=== PATIENT | female | born 1945 | race Caucasian/White ===

== ENCOUNTER → 2019-04-24 | Outpatient (CLI) | payer MEDICARE ==
[~2019-04-24] MED LIST: AMLO5 PO; ANAS1 PO; ASPI325 PO; CITA20 PO; CLON.5 PO; FISH1000 PO; HYDACE7.5 PO; HYDCHL12.5 PO; LEVSOD50 PO; MECL25 PO; METO25ER PO; PRAV20 PO
== END | disposition home or self-care (01) ==
LOC: LAB SHORT 14:30 → LAB EV 14:30
DX: L30.9 Dermatitis, unspecified (principal)
CPT/HCPCS: 87070; 87205

== ENCOUNTER → 2020-03-19 | Outpatient (CLI) | payer MEDICARE | END | disposition home or self-care (01) | LOC: LAB EV 14:58 → LAB SHORT 14:58 | DX: R35.0 Frequency of micturition (principal) | CPT/HCPCS: 87077; 87086; 87186 ==

== ENCOUNTER 2022-10-18 09:01 | Inpatient (IN) | payer MEDICARE ==
[~2022-10-18] VITALS: Ht 160 cm; Wt 45.4 kg
[~2022-10-18 09:01] MED LIST changes: +CELEXA40 M1 PO; -CITA20 PO; -HYDACE7.5 PO; +Hydrocodone-Ap1 EA26 PO; +Pravastatin Sod80 MG PO
[2022-10-18 09:55] LABS: Albumin, Blood 3.3 g/dL (3.4-5.0); Albumin/Globulin Ratio 0.9 (0.8-1.8); Bilirubin, Total 0.6 mg/dL (0.1-1.0); Bun/Creatinine Ratio 16.4 (12.0-20.0); Calcium, Blood 8.5 mg/dL (8.5-10.1); Creatinine, Blood 1.16 mg/dL (0.40-1.00); Globulin, Blood 3.5 g/dL (2.2-4.0); Potassium, Blood 5.4 mmol/L (3.5-5.5); Total Protein, Blood 6.8 g/dL (6.4-8.2)
[2022-10-18 10:10] LABS: BASOPHILS ABSOLUTE AUTO 0.03 K/mm3 (0.00-0.23); BASOPHILS PERCENT AUTO 0 % (0-2); EOSINOPHILS ABSOLUTE AUTO 0.04 K/mm3 (0.00-0.68); EOSINOPHILS PERCENT AUTO 0 % (0-6); Hematocrit 36.1 % (33.0-51.0); Hemoglobin 11.1 g/dL (11.5-16.0); IMMATURE GRAN ABSOLUTE AUTO 0.09 K/mm3 (0.00-0.10); IMMATURE GRAN PERCENT AUTO 1 % (0-1); LYMPHOCYTES ABSOLUTE AUTO 1.79 K/mm3 (0.84-5.20); LYMPHOCYTES PERCENT AUTO 10 % (21-46); MONOCYTES ABSOLUTE AUTO 1.77 K/mm3 (0.16-1.47); MONOCYTES PERCENT AUTO 10 % (4-13); Mean Corpuscular HGB 25.8 pg (26.0-34.0); Mean Corpuscular HGB Conc 30.7 g/dL (31.5-36.5); Mean Corpuscular Volume 84 fL (80-100); Mean Platelet Volume 9.2 fL (9.1-12.4); NEUTROPHILS ABSOLUTE AUTO 14.66 K/mm3 (1.96-9.15); NEUTROPHILS PERCENT AUTO 80 % (41-73); Platelet Count 395 K/mm3 (150-400); RDW Coefficient Variation 15.2 % (11.7-14.2); RDW Standard Deviation 46.1 fL (35.1-46.3); White Blood Cell Count 18.38 K/mm3 (4.00-11.30)
[2022-10-18] MEDS ORDERED: TRELEGY ELLIPT1 EAC1 INH (10:12)
[2022-10-18] MEDS ORDERED: SYMBICORT 16010.2 GM (10:13)
[2022-10-18] MEDS ORDERED: INCRUSE (10:13)
[2022-10-18] MEDS ORDERED: LISI5 PO (10:13)
[2022-10-18] MEDS ORDERED: BUPROPION XL150 M1 PO (10:14)
[2022-10-18 10:15] LABS: Influenza B, PCR NEGATIVE (NEGATIVE); Resp Syncytial Virus, PCR NEGATIVE (NEGATIVE); SARS-Cov-2 (COVID-19) PCR, MMC NEGATIVE (NEGATIVE)
[2022-10-18 10:16] LABS: Influenza A, PCR POSITIVE (NEGATIVE)
[2022-10-18 12:55] LABS: Magnesium, Blood 2.3 mg/dL (1.6-2.4); Thyroid Stimulating Hormone 5.53 uIU/mL (0.360-4.800)
--- NOTE | 2022-10-18 17:40 | NUR ---
PT ARRIVED TO UNIT FROM ER SLIDE TRANSFER, FAMILY @ BEDSIDE. A&OX4 10L NC-WEANED TO 2L NC MAINTAINING OX SAT >95%. PT APPEARS DROWSEY
[2022-10-18] MEDS ORDERED: Prednisone10 MG PO (18:10)
[2022-10-18] MEDS ORDERED: Ventolin/Prove6.7 GM INH (18:19)
[2022-10-19 05:25] LABS: BASOPHILS PERCENT AUTO 0 % (0-2); EOSINOPHILS PERCENT AUTO 0 % (0-6); Hematocrit 32.8 % (33.0-51.0); Hemoglobin 10.2 g/dL (11.5-16.0); IMMATURE GRAN ABSOLUTE AUTO 0.03 K/mm3 (0.00-0.10); IMMATURE GRAN PERCENT AUTO 0 % (0-1); LYMPHOCYTES PERCENT AUTO 2 % (21-46); MONOCYTES ABSOLUTE AUTO 0.37 K/mm3 (0.16-1.47); MONOCYTES PERCENT AUTO 4 % (4-13); Mean Corpuscular HGB 25.8 pg (26.0-34.0); Mean Corpuscular HGB Conc 31.1 g/dL (31.5-36.5); Mean Corpuscular Volume 83 fL (80-100); Mean Platelet Volume 9.4 fL (9.1-12.4); NEUTROPHILS ABSOLUTE AUTO 9.37 K/mm3 (1.96-9.15); NEUTROPHILS PERCENT AUTO 94 % (41-73); Platelet Count 314 K/mm3 (150-400); RDW Coefficient Variation 15.1 % (11.7-14.2); RDW Standard Deviation 46.1 fL (35.1-46.3); Red Blood Cell Count 3.95 M/mm3 (3.80-5.20); White Blood Cell Count 9.97 K/mm3 (4.00-11.30)
[2022-10-19 05:55] LABS: Albumin, Blood 3.3 g/dL (3.4-5.0); Anion Gap 9 mmol/L (6-16); Blood Urea Nitrogen 22 mg/dL (8-24); Bun/Creatinine Ratio 18.6 (12.0-20.0); CO2, Blood 26 mmol/L (21-32); Calcium, Blood 8.4 mg/dL (8.5-10.1); Chloride, Blood 104 mmol/L (98-108); Creatinine, Blood 1.18 mg/dL (0.40-1.00); Glomerular Filtration Rate 48 (60-); Glucose, Blood 114 mg/dL (70-99); Magnesium, Blood 2.2 mg/dL (1.6-2.4); Phosphorus, Blood 4.4 mg/dL (2.5-4.9); Potassium, Blood 4.3 mmol/L (3.5-5.5); Sodium, Blood 139 mmol/L (136-145)
--- NOTE | 2022-10-19 07:22 | NUR ---
Shift Summary Pt was very anxious and feeling SoB at the beginning of the night. Called hospitalist and rcvd order for Trazadone. Before I administered this med RT had placed pt on BIPAP. Pt was feeling much better and stated 0 anxiety, did not give Trazadone. Started pt on NS @100. Gave IV lasix and solumedrol. Pt slept well t/o the night on BIPAP. Pt woke up this AM and and used the restroom, then started wheezing, having SoB and anxiety. Called RT who arrived during shift change. Pt on BIOX, maintaned O2 sat > 92% all shift. Pleasant and cooperative with care.
--- NOTE | 2022-10-19 17:12 | NUR ---
SHIFT SUMMARY PT A&OX4 AND IN PLEASENT MOOD, ANXIETY NOTED. FAMILY @ BEDSIDE T/O SHIFT. RT IN TO SEE PT. MEDS ADJUSTED THIS SHIFT. PHYSICAL AND OCCUPATIONAL THERAPY IN TO SEE AND WORK W/ PT THIS SHIFT. PLANT BASED NUTRITIONAL SHAKE ALT PROVIDED TO PT BY NUTRIONALIST. CALL LIGHT W/IN REACH. HTN NOTED, OTHER VSS. 1L NC @ THIS TIME. SPUTUM SAMP. PENDING. PT COUGHING UP THICK, FERNANDEZ/BROWN SPUTUM T/O SHIFT.
--- NOTE | 2022-10-20 06:31 | NUR ---
SHIFT SUMMARY PATIENT ALERT AND ORIENTED. HAD NO COMPLAINTS OF PAIN OR SHORTNESS OF BREATH. NO ACUTE ISSUES NOTED OVERNIGHT. CALL LIGHT WITHIN REACH. REPORT GIVEN TO ONCOMING RN.
--- NOTE | 2022-10-20 16:52 | NUR ---
SHIFT SUMMARY PT A&OX4 AND IN PLEASENT MOOD T/O SHIFT. 2L HUMIDIFIED NC @ THIS TIME. FAMILY @ BEDSIDE T/O SHIFT. TOLERATING ORAL INTAKE, VERY SMALL AMOUNTS-ENCOURAGED ENSURE. CALL LIGHT W/IN REACH. PURE WICK IN PLACE DUE TO SOB W/ EXERTION @ THIS TIME.
[2022-10-21 05:02] LABS: BASOPHILS ABSOLUTE AUTO 0.01 K/mm3 (0.00-0.23); BASOPHILS PERCENT AUTO 0 % (0-2); EOSINOPHILS PERCENT AUTO 0 % (0-6); Hematocrit 29.7 % (33.0-51.0); Hemoglobin 9.5 g/dL (11.5-16.0); IMMATURE GRAN ABSOLUTE AUTO 0.04 K/mm3 (0.00-0.10); IMMATURE GRAN PERCENT AUTO 0 % (0-1); LYMPHOCYTES ABSOLUTE AUTO 0.24 K/mm3 (0.84-5.20); LYMPHOCYTES PERCENT AUTO 2 % (21-46); MONOCYTES ABSOLUTE AUTO 0.44 K/mm3 (0.16-1.47); MONOCYTES PERCENT AUTO 4 % (4-13); Mean Corpuscular Volume 81 fL (80-100); Mean Platelet Volume 9.7 fL (9.1-12.4); NEUTROPHILS ABSOLUTE AUTO 9.22 K/mm3 (1.96-9.15); NEUTROPHILS PERCENT AUTO 93 % (41-73); Platelet Count 297 K/mm3 (150-400); RDW Coefficient Variation 15.3 % (11.7-14.2); RDW Standard Deviation 45.6 fL (35.1-46.3); Red Blood Cell Count 3.65 M/mm3 (3.80-5.20); White Blood Cell Count 9.95 K/mm3 (4.00-11.30)
[2022-10-21 05:23] LABS: Magnesium, Blood 2.2 mg/dL (1.6-2.4)
[2022-10-21 05:24] LABS: Albumin, Blood 2.8 g/dL (3.4-5.0); Anion Gap 9 mmol/L (6-16); Blood Urea Nitrogen 37 mg/dL (8-24); Bun/Creatinine Ratio 32.5 (12.0-20.0); CO2, Blood 29 mmol/L (21-32); Calcium, Blood 7.9 mg/dL (8.5-10.1); Chloride, Blood 100 mmol/L (98-108); Creatinine, Blood 1.14 mg/dL (0.40-1.00); Glomerular Filtration Rate 50 (60-); Glucose, Blood 126 mg/dL (70-99); Phosphorus, Blood 4.3 mg/dL (2.5-4.9); Potassium, Blood 3.3 mmol/L (3.5-5.5); Sodium, Blood 138 mmol/L (136-145)
--- NOTE | 2022-10-21 06:17 | NUR ---
SHIFT SUMMARY PATIENT ALERT AND ORIENTED. HAD NO COMPLAINTS OF PAIN OR SHORTNESS OF BREATH. NO ACUTE ISSUES NOTED OVERNIGHT. OXYGEN TITRATED DOWN TO 1 LITER VIA NASAL CANULA. CALL LIGHT WITHIN REACH. REPORT GIVEN TO ONCOMING RN.
--- NOTE | 2022-10-21 12:41 | NUR ---
RN NOTE MS RAYA HAS SOB ON THE LEAST EXERTION, HAS A LOOSE PRODUCTIVE COUGH. ON 1 L N/C IN THE 90S, DROPS TO HIGH 80S ON ACTIVITY. WORKED WITH PT THIS MORNING. SHE AGREED TO HAVE PURE WICK REMOVED (DONE), GOT UP TO CHAIR AND BEDSIDE COMMODE. GRANDDAUGHTER AT BEDSIDE. C/O CHRONIC HIP PAIN WHEN ASKED. BED LOW, CALL LIGHT IN REACH.
--- NOTE | 2022-10-21 16:21 | NUR ---
SHIFT SUMMARY SEE EARLIER NOTE. MS RAYA HAS BEEN UP TO THE CHAIR TODAY. SHE STILL GETS SOB ON MINIMAL EXERTION AND HAS BEEN ON 1L NC O2. MOIST, PRODUCTIVE, FREQUENT COUGH. DENIED CHEST PAIN. BED LOW, CALL LIGHT IN REACH. FAMILY AT BEDSIDE.
[2022-10-22 04:55] LABS: BASOPHILS ABSOLUTE AUTO 0.01 K/mm3 (0.00-0.23); BASOPHILS PERCENT AUTO 0 % (0-2); EOSINOPHILS ABSOLUTE AUTO 0.01 K/mm3 (0.00-0.68); EOSINOPHILS PERCENT AUTO 0 % (0-6); Hematocrit 30.8 % (33.0-51.0); Hemoglobin 10.1 g/dL (11.5-16.0); IMMATURE GRAN ABSOLUTE AUTO 0.05 K/mm3 (0.00-0.10); IMMATURE GRAN PERCENT AUTO 1 % (0-1); LYMPHOCYTES PERCENT AUTO 8 % (21-46); MONOCYTES ABSOLUTE AUTO 0.97 K/mm3 (0.16-1.47); MONOCYTES PERCENT AUTO 10 % (4-13); Mean Corpuscular HGB 26.4 pg (26.0-34.0); Mean Corpuscular HGB Conc 32.8 g/dL (31.5-36.5); Mean Corpuscular Volume 80 fL (80-100); Mean Platelet Volume 9.4 fL (9.1-12.4); NEUTROPHILS ABSOLUTE AUTO 7.73 K/mm3 (1.96-9.15); NEUTROPHILS PERCENT AUTO 81 % (41-73); Platelet Count 313 K/mm3 (150-400); RDW Coefficient Variation 15.3 % (11.7-14.2); RDW Standard Deviation 44.3 fL (35.1-46.3); Red Blood Cell Count 3.83 M/mm3 (3.80-5.20); White Blood Cell Count 9.57 K/mm3 (4.00-11.30)
[2022-10-22 05:13] LABS: Albumin, Blood 2.9 g/dL (3.4-5.0); Anion Gap 6 mmol/L (6-16); Blood Urea Nitrogen 34 mg/dL (8-24); Bun/Creatinine Ratio 30.6 (12.0-20.0); CO2, Blood 34 mmol/L (21-32); Calcium, Blood 8.4 mg/dL (8.5-10.1); Chloride, Blood 98 mmol/L (98-108); Creatinine, Blood 1.11 mg/dL (0.40-1.00); Glomerular Filtration Rate 52 (60-); Glucose, Blood 100 mg/dL (70-99); Phosphorus, Blood 2.9 mg/dL (2.5-4.9); Potassium, Blood 3.1 mmol/L (3.5-5.5); Sodium, Blood 138 mmol/L (136-145)
--- NOTE | 2022-10-22 17:53 | NUR ---
SHIFT SUMMARY MS RAYA SAID THAT SHE'S FEELING BETTER NOW, AT THE END OF THE DAY, SAID THAT SHE FEELS ABLE TO GO HOME TOMORROW. ROOM AIR TRIAL DONE THIS AM, STAYED AROUND 90% AT REST BUT DROPPED TO 84% JUST GETTING UP TO THE CHAIR, SO KEPT 1L N/C ON. POTASSIUM IV REPLACEMENTS DONE. NORCO 1 TAB REQUESTED AND GIVEN FOR HIP DISCOMFORT, HEAT PAD AND REPOSITIONING ALSO DONE. DISCUSSED WITH PT BENEFITS OF REDUCING CAFFEINE INTAKE AT HOME, SHE SAID THE MAJORITY OF HER PO FLUIDS ARE FROM [place]. SHE VERBALISED UNDERSTANDING. UP IN CHAIR SEVERAL TIMES TODAY, DOING FLUTTER VALVE AND LEG EXERCISES. CALL LIGHT IN REACH.
[2022-10-23 06:01] LABS: BASOPHILS ABSOLUTE AUTO 0.01 K/mm3 (0.00-0.23); BASOPHILS PERCENT AUTO 0 % (0-2); EOSINOPHILS ABSOLUTE AUTO 0.03 K/mm3 (0.00-0.68); EOSINOPHILS PERCENT AUTO 0 % (0-6); Hematocrit 31.7 % (33.0-51.0); Hemoglobin 9.8 g/dL (11.5-16.0); IMMATURE GRAN ABSOLUTE AUTO 0.04 K/mm3 (0.00-0.10); IMMATURE GRAN PERCENT AUTO 0 % (0-1); LYMPHOCYTES ABSOLUTE AUTO 1.28 K/mm3 (0.84-5.20); LYMPHOCYTES PERCENT AUTO 14 % (21-46); MONOCYTES ABSOLUTE AUTO 0.89 K/mm3 (0.16-1.47); MONOCYTES PERCENT AUTO 10 % (4-13); Mean Corpuscular HGB 25.9 pg (26.0-34.0); Mean Corpuscular HGB Conc 30.9 g/dL (31.5-36.5); Mean Corpuscular Volume 84 fL (80-100); Mean Platelet Volume 9.9 fL (9.1-12.4); NEUTROPHILS ABSOLUTE AUTO 6.92 K/mm3 (1.96-9.15); NEUTROPHILS PERCENT AUTO 76 % (41-73); Platelet Count 298 K/mm3 (150-400); RDW Coefficient Variation 15.4 % (11.7-14.2); RDW Standard Deviation 46.8 fL (35.1-46.3); Red Blood Cell Count 3.79 M/mm3 (3.80-5.20); White Blood Cell Count 9.17 K/mm3 (4.00-11.30)
[2022-10-23 06:51] LABS: Albumin, Blood 2.9 g/dL (3.4-5.0); Anion Gap 4 mmol/L (6-16); Blood Urea Nitrogen 32 mg/dL (8-24); Bun/Creatinine Ratio 29.4 (12.0-20.0); CO2, Blood 33 mmol/L (21-32); Calcium, Blood 8.6 mg/dL (8.5-10.1); Chloride, Blood 100 mmol/L (98-108); Creatinine, Blood 1.09 mg/dL (0.40-1.00); Glomerular Filtration Rate 53 (60-); Glucose, Blood 85 mg/dL (70-99); Magnesium, Blood 2.2 mg/dL (1.6-2.4); Phosphorus, Blood 3.6 mg/dL (2.5-4.9); Potassium, Blood 4.8 mmol/L (3.5-5.5); Sodium, Blood 137 mmol/L (136-145)
--- NOTE | 2022-10-23 07:31 | NUR ---
A/OX4; CALM/ PLEASANT/ COOPERATIVE. [place] SBA TO BR (COULD BE IND ON DAY SHIFT NOW - STEADY ON FEET) 1 L O2 VIA NC. SOB WITH EXERTION. NO SOB OBSERVED AT REST. HEAT PAD PRN AND ANALGESIC PER EMAR FOR C/O CHRONIC HIP PAIN; HELPFUL PER PATIENT SLEEP PROMOTED. CALL LIGHT IN REACH, ENCOURAGED TO MAKE NEEDS KNOWN. BED ALARM SET (CALLS APPROPRIATELY).
--- NOTE | 2022-10-23 11:05 | NUR ---
RN NOTE MS RAYA ISD A&OX4. SHE SAID SHE'S FEELING BETTER TODAY AND IS LOOKING FORWARD TO GOING HOME. HOME O2 EVAL DONE BY RT, RECOMMENDS NO OXYGEN. PT SAID SHE HAS GOOD SUPPORT AT HOME AND HAS HOME HEALTH ORGANISED STARTING TOMORROW.
[2022-10-23] MEDS ORDERED: ASPI81CH PO (11:22)
[2022-10-23] MEDS ORDERED: PRED20 PO (11:24)
[2022-10-23] MEDS ORDERED: FURO40 PO (11:24)
[2022-10-23] MEDS ORDERED: GUAI600T33 PO (11:25)
[2022-10-23] MEDS ORDERED: EUTHYROX50 MCG PO (11:25)
[2022-10-23] MEDS ORDERED: MELA3 PO (11:25)
[2022-10-23] MEDS ORDERED: NIFE30ER PO (11:26)
[2022-10-23] MEDS ORDERED: TRAZ50 PO (11:26)
--- NOTE | 2022-10-23 12:49 | NUR ---
RN NOTE PT AND ELISABETH VERBALISED UNDERSTANDING OF WRITTEN AND VERBAL DISCHARGE INSTRUCTIONS. SHE IS DRESSSING NOW, READY TO TRASFER OUT IN THE WHEELCHAIR. SHE IS SMILING AND HAPPY ON DISCHARGE. NO CONCERNS AT TIME OF D/C. PIV REMOVED INTACT.
== END 2022-10-23 13:03 | disposition home health service (06) | DRG 871 ==
LOC: ER 09:01 → ERHOLD 11:34 → MEDS 17:28
PROVIDERS: Emergency Medicine; ADMIT Family Medicine
DX: A41.89 Other specified sepsis (principal); I50.33 Acute on chronic diastolic (congestive) heart failure; J10.01 Influenza due to other identified influenza virus with the same other identified influenza virus pneumonia; J96.01 Acute respiratory failure with hypoxia; J44.0 Chronic obstructive pulmonary disease with (acute) lower respiratory infection; E87.20 Acidosis, unspecified; Z20.822 Contact with and (suspected) exposure to COVID-19; F17.210 Nicotine dependence, cigarettes, uncomplicated; I11.0 Hypertensive heart disease with heart failure; F41.8 Other specified anxiety disorders; Z85.3 Personal history of malignant neoplasm of breast; Z88.0 Allergy status to penicillin; Z79.82 Long term (current) use of aspirin; Z79.899 Other long term (current) drug therapy
CPT/HCPCS: 0241U; 36415; 71045; 80053; 80069; 83605; 83735; 83880; 84145; 84443; 84484; 85025; 87040; 87070; 87205; 93005; 93010; 94640; 94644; 94660; 94664; 94760; 94761; 94762; 96365; 96375; 96376; 97110; 97116-CQ; 97161; 97165; 97530; 97530-CQ; 97535; 99285-25; A9270; J0360; J0456; J0696; J1644; J1940; J2060; J2920; J2930; J3480; J7030; J7050; J7512

== ENCOUNTER 2024-05-18 13:20 | Emergency (ER) | payer MEDICARE, OTHER ==
[~2024-05-18] VITALS: Ht 160 cm; Wt 45.4 kg
[~2024-05-18 13:20] MED LIST changes: +ASPI81CH PO; +BUPROPION XL150 M1 PO; +EUTHYROX50 MCG PO; +FURO40 PO; +GUAI600T33 PO; +INCRUSE; +LISI5 PO; +MELA3 PO; +NIFE30ER PO; +PRED20 PO; +Prednisone10 MG PO; +SYMBICORT 16010.2 GM; +TRAZ50 PO; +TRELEGY ELLIPT1 EAC1 INH; +Ventolin/Prove6.7 GM INH
[2024-05-18] MEDS ORDERED: HYDROcodone 5-APAP 325 TAB PO ONE (19:25)
[2024-05-18] MEDS ORDERED: AMLODIPINE BES2.5 MG PO (19:45)
[2024-05-18 21:00] VITALS: BP 135/64
== END 2024-05-18 22:10 | disposition home or self-care (01) ==
LOC: ER 13:20
DX: S70.02XA Contusion of left hip, initial encounter (principal); M25.562 Pain in left knee; I10 Essential (primary) hypertension; J44.9 Chronic obstructive pulmonary disease, unspecified; F17.200 Nicotine dependence, unspecified, uncomplicated; W17.2XXA Fall into hole, initial encounter; Z79.899 Other long term (current) drug therapy; Z79.82 Long term (current) use of aspirin; Z79.52 Long term (current) use of systemic steroids; Z79.51 Long term (current) use of inhaled steroids
CPT/HCPCS: 72170; 72192; 73562-LT; A9270